=== PATIENT | female | born 1970 | race Caucasian/White ===

== ENCOUNTER 2020-11-13 17:29 | Emergency (ER) | payer OTHER, SELFPAY ==
--- NOTE | ~2020-11-13 | XR_ITS ---
EXAMINATION: XR ankle RT min 3V INDICATION: Right ankle pain TECHNIQUE: Four views of the right ankle are obtained COMPARISON: None available FINDINGS: Bone alignment is normal. There is lateral soft tissue swelling of ankle. No fracture is id entified. Dorsal and plantar calcaneal enthesophytes are noted. IMPRESSION: 1. Ankle soft tissue swelling without acute osseous abnormality. Reviewed, dictated and finalized at location A.
--- NOTE | ~2020-11-13 | XR_ITS ---
EXAMINATION: XR foot RT min 3V DATE: 11/13/2020 18:07 INDICATION: Right foot pain TECHNIQUE: Dorsoplantar, lateral, and 2 oblique views of the right foot were obtained. COMPARISON: None. FINDINGS: There is no fracture, dislocation, or subluxation. 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 The soft tissues are unremarkable. IMPRESSION: 1. No acute osseous abnormality. Reviewed, dictated and finalized at location A.
[2020-11-13 17:40] VITALS: BP 135/77; PULSE 99; RESP 20; TEMP 36.6; O2SAT 98
--- NOTE | 2020-11-13 18:34 | ED.LOWEXIN ---
HPI - Extremity Injury (Lower) General Chief Complaint: Extremity Injury, Lower Stated Complaint: fall,rt ankle/foot inj Source: patient Mode of arrival: ambulatory Limitations: no limitations History of Present Illness HPI Narrative: Patient is a 50-year-old female who presents complaining of right ankle pain. She reports rolling ankle while going down steps today. She reports pain with ambulation. She denies taking [id number] medications prior to arrival. Patient denies all other complaints. Related Data Home Medications Medication Instructions Recorded Confirmed buspirone 15 mg PO DAILY 11/13/20 11/13/20 duloxetine 30 mg PO DAILY 11/13/20 11/13/20 warfarin 2 mg PO DAILY 11/13/20 11/13/20 warfarin 7.5 mg PO DAILY 11/13/20 11/13/20 Allergies Allergy/AdvReac Type Severity Reaction Status Date / Time No Known Allergies Allergy Verified 11/13/20 18:05 Review of Systems Review of Systems: Narrative: CONSTITUTIONAL: Denies fever, chills, or sweats. EYES: Denies visual changes, redness, or discharge. ENT: Denies rhinorrhea, congestion, sore throat, or otalgia. CARDIOVASCULAR: Denies chest pain, palpitations, or edema. RESPIRATORY: Denies cough or dyspnea. GASTROINTESTINAL: Denies abdominal pain, nausea, vomiting, or diarrhea. GENITOURINARY: Denies dysuria or hematuria. SKIN: Denies rash or itching. MUSCULOSKELETAL: Right ankle pain NEUROLOGIC: Denies headache, numbness, dizziness, or weakness. PSYCHIATRIC: Denies anxiety or depression. [facility] Past Medical History Medical History Chronic back pain Depression DVT (deep venous thrombosis) Pulmonary embolism Surgical History Surgical History H/O arthroscopy of left knee History of carpal tunnel surgery History of hysterectomy Hx of tonsillectomy S/P cervical spinal fusion Family History Family History Other Heart disease Social History Social History (Updated 11/13/20 @ 18:37 by HAFSA Trotter) Smoking status: Current every day smoker Tobacco type: cigarettes Alcohol intake: never Substance use: never Occupation/Education: occupation Comments At the time of signature, I have reviewed and agree with nursing past medical, surgical, social, and family history unless otherwise noted. Please see nursing chart for further information. There is no relevant family history pertinent to the presenting complaint. Exam Narrative: Exam Narrative: GENERAL: Well-appearing, well-nourished, and in no acute distress. HEAD: Normocephalic, atraumatic. EYES: EOMI. No redness or drainage. Conjunctiva are normal. ENT: Mucous membranes pink and moist. CHEST: No respiratory distress. Clear to auscultation. HEART: Regular rate and rhythm. No murmur appreciated. Normal peripheral pulses. EXTREMITIES: Positive edema to right lateral ankle, tenderness with palpation SKIN: Warm, dry, no rash. NEURO: No focal deficits. Alert and oriented x3. Gait steady. PSYCH: Normal affect. No signs of depression or anxiety. Course Vital Signs Vital signs: Vital Signs Temperature 36.6 C 11/13/20 17:40 Pulse Rate 99 11/13/20 17:40 Respiratory Rate 20 11/13/20 17:40 Blood Pressure 135/77 11/13/20 17:40 Pulse Oximetry 98 11/13/20 17:40 Temperature 36.6 C 11/13/20 17:40 Pulse Rate 99 11/13/20 17:40 Respiratory Rate 20 11/13/20 17:40 Blood Pressure 135/77 11/13/20 17:40 Pulse Oximetry 98 11/13/20 17:40 Reviewed-patient is informed that they may have pre-hypertension or hypertension based on a blood pressure reading. I recommend the patient call the primary care provider listed on their discharge instructions or a physician of their choice this week to arrange follow-up for further evaluation of possible pre-hypertension or hypertension. MDM - Extremity Injury
== END 2020-11-13 18:40 | disposition home or self-care (01) ==
PROVIDERS: Emergency Provider Nurse Practitioner; PCP Nurse Practitioner Adult Health
DX: S93.401A Sprain of unspecified ligament of right ankle, initial encounter (principal); S96.911A Strain of unspecified muscle and tendon at ankle and foot level, right foot, initial encounter; X50.9XXA Other and unspecified overexertion or strenuous movements or postures, initial encounter; F32.9 Major depressive disorder, single episode, unspecified; Z86.711 Personal history of pulmonary embolism; Z86.718 Personal history of other venous thrombosis and embolism; F17.210 Nicotine dependence, cigarettes, uncomplicated; Z79.01 Long term (current) use of anticoagulants
CPT/HCPCS: 73610; 73630; 99203; G0463

== ENCOUNTER 2021-05-27 14:35 | Emergency (ER) | payer OTHER, SELFPAY ==
--- NOTE | ~2021-05-27 | XR_ITS ---
EXAMINATION: XR chest 2V DATE: 05/27/2021 15:25 INDICATION: Cough, fever, shortness breath, and wheezing. TECHNIQUE: Frontal and lateral views of the chest were obtained. COMPARISON: None. FINDINGS: The chest demonstrates clear lungs without pneumonia, pleural effusion, or pneumothorax. Th e heart size is normal. There are changes of anterior fusion procedure in cervical spine. IMPRESSION: 1. No acute cardiopulmonary disease. Reviewed, dictated and finalized at location A. [facility]
--- NOTE | 2021-05-27 14:38 | ED.URI ---
HPI - URI/Sore Throat General Chief Complaint: Upper Respiratory Infection Stated Complaint: Congestion/Sore Throat Time Seen by Provider: 05/27/21 14:38 Source: patient and RN notes reviewed History of Present Illness HPI Narrative: Patient is a 51-year-old female who presents the urgent care with complaints of sore throat, cough, body aches, fever and chest congestion. Patient states that she had a negative Covid test last . States that symptoms started approximately 1 week ago. Patient has been Covid vaccinated. States that she has been taking Tylenol, Zyrtec, NyQuil and Mucinex. No other acute complaints. No acute distress noted. Patient aware of the plan of care. Some parts of this dictation were generated by voice recognition software and may contain typographical and/or grammatical inaccuracies. Related Data Home Medications Medication Instructions Recorded Confirmed buspirone 15 mg PO BID 11/13/20 05/27/21 duloxetine 30 mg PO BID 11/13/20 05/27/21 warfarin 2 mg PO DAILY 11/13/20 05/27/21 warfarin 7.5 mg PO DAILY 11/13/20 05/27/21 Allergies Allergy/AdvReac Type Severity Reaction Status Date / Time No Known Allergies Allergy Verified 05/27/21 15:08 Review of Systems Review of Systems: CONSTITUTIONAL: Reports of fever, chills EYES: Denies visual changes, redness, or discharge. ENT: Reports of postnasal drainage, congestion and sore throat CARDIOVASCULAR: Denies chest pain, palpitations, or edema. RESPIRATORY: Reports of cough with intermittent dyspnea GASTROINTESTINAL: Denies abdominal pain, nausea, vomiting, or diarrhea. GENITOURINARY: Denies dysuria or hematuria. SKIN: Denies rash or itching. MUSCULOSKELETAL: Denies back pain, joint pain. Reports of body aches NEUROLOGIC: Denies headache, numbness, or weakness. All other systems reviewed are negative, except as documented in HPI. [facility] Past Medical History Medical History Chronic back pain Depression DVT (deep venous thrombosis) Pulmonary embolism Surgical History Surgical History H/O arthroscopy of left knee History of carpal tunnel surgery History of hysterectomy Hx of tonsillectomy S/P cervical spinal fusion Family History Family History Other Heart disease Social History Social History (Updated 11/13/20 @ 18:37 by HAFSA Trotter) Smoking status: Current every day smoker Tobacco type: cigarettes Alcohol intake: never Substance use: never Comments At the time of my signature, I reviewed and agree with the nursing past medical, surgical, social, and family history. There is no relevant family history pertinent to the patient complaint. Exam Narrative: GENERAL: This is a well-nourished, well-developed patient, in no apparent distress. HEAD: normocephalic, atraumatic. EYES: PERRL. Sclera clear/white. Vision is grossly intact. EARS: External ears normal, auditory canals clear and without drainage, TMs normal without perforation. Hearing grossly intact. NOSE: External nose normal with no obvious nasal discharge, nares without redness, clear rhinorrhea. THROAT: Mucous membranes moist, posterior pharynx clear. Moderate postnasal drainage NECK: Neck supple CARDIOVASCULAR: Regular rate and rhythm without murmurs, gallops, or rubs. RESPIRATORY: Rare expiratory wheezes to the bilateral upper lobes and left lower SKIN: warm, intact with no suspicious lesions or rash, good texture and turgor. NEURO: awake, alert, and oriented to person, place and time. There were no obvious focal neurologic abnormalities. EXTREMITIES: No clubbing, cyanosis, or edema. Course Vital Signs Vital signs: Vital Signs Temperature 97.3 F L 05/27/21 14:44 Pulse Rate 112 H 05/27/21 14:44 Respiratory Rate 20 05/27/21 14:44 Blood Pressure 148/92 H 05/27/21 14:44 Pulse O
[2021-05-27 14:44] VITALS: BP 148/92; PULSE 112; RESP 20; TEMP 36.3; O2SAT 98
== END 2021-05-27 15:55 | disposition home or self-care (01) ==
PROVIDERS: Emergency Provider Nurse Practitioner Family; PCP Nurse Practitioner Family
DX: J40 Bronchitis, not specified as acute or chronic (principal); F17.200 Nicotine dependence, unspecified, uncomplicated
CPT/HCPCS: 71046; 87804; 99213; G0463

== ENCOUNTER 2023-09-11 11:56 | Emergency (ER) | payer OTHER, SELFPAY ==
[2023-09-11 12:06] VITALS: BP 127/86; PULSE 98; RESP 20; TEMP 36.6; O2SAT 98
--- NOTE | 2023-09-11 12:10 | ED.URI ---
HPI - URI/Sore Throat General Chief Complaint: Upper Respiratory Infection Stated Complaint: Shortness of Breath Time Seen by Provider: 09/11/23 12:22 Source: patient and RN notes reviewed Mode of arrival: ambulatory Limitations: no limitations History of Present Illness HPI Narrative: 53-year-old female presents concern for 3 month history of productive cough, occasional shortness of breath, sinus congestion, sinus drainage, postnasal drainage. She reports [id number] medications are not helping. She denies fever, body aches, chills, sweats, chest pain. She has history of PE 10 years ago for which she is currently on blood thinners. Reports the symptoms are not similar to those symptoms. She understands that PE cannot be diagnosed at the urgent care. MD elicited complaint: cough and nasal congestion Related Data Home Medications Medication Instructions Recorded Confirmed duloxetine 30 mg capsule,delayed 30 mg PO BID 11/13/20 09/11/23 release atorvastatin 40 mg tablet 40 mg PO DAILY 09/11/23 09/11/23 buspirone 30 mg tablet 30 mg PO BID 09/11/23 09/11/23 propranolol 20 mg tablet 20 mg PO TID 09/11/23 09/11/23 rivaroxaban 20 mg tablet (Xarelto) 20 mg PO DAILY 09/11/23 09/11/23 trazodone 100 mg tablet 100 mg PO QHS 09/11/23 09/11/23 Allergies Allergy/AdvReac Type Severity Reaction Status Date / Time No Known Allergies Allergy Verified 09/11/23 12:17 Review of Systems Review of Systems: CONSTITUTIONAL: Denies malaise, chills, sweats, or fever. EYES: Denies visual changes, redness, or discharge. ENT: Reports rhinorrhea, congestion, sinus pain CARDIOVASCULAR: Denies chest pain, palpitations, or edema. RESPIRATORY: Reports chronic productive cough, occasion dyspnea. GASTROINTESTINAL: Denies abdominal pain, nausea, vomiting, diarrhea SKIN: Denies rash or itching. MUSCULOSKELETAL: Denies myalgia. NEUROLOGIC: Denies headache. All systems reviewed & are unremarkable except as noted in HPI and below PMFSH Past Medical History Medical History Chronic back pain Depression DVT (deep venous thrombosis) Pulmonary embolism Surgical History Surgical History H/O arthroscopy of left knee History of carpal tunnel surgery History of hysterectomy Hx of tonsillectomy S/P cervical spinal fusion Family History Family History Other Heart disease Social History Social History (Updated 11/13/20 @ 18:37 by Magali Hazel, HAFSA) Smoking status: Current every day smoker Tobacco type: cigarettes Alcohol intake: never Substance use: never Occupation/Education: occupation Comments At time of signature, agree with nursing past medical, surgical, social and family history. There is no relevant family history pertinent to the presenting complaint Exam Narrative: GENERAL: Well-appearing, well-nourished, and in no acute distress. HEAD: Normocephalic EYES: PERRLA, conjunctivae clear ENT: Nares clear, turbinates edematous and erythematous. Mucous membranes moist. TM pearly matthews with dull light reflex bilaterally; no tragal tenderness. Oropharynx not erythematous without lesions. Tonsils not enlarged and without exudate, no drooling, no hoarseness, no trismus, uvula midline. NECK: Supple. No lymphadenopathy CHEST: Clear to auscultation, breath sounds equal. No wheezing, rhonchi, rales, or stridor. No respiratory distress, speaks in full sentences. HEART: Regular rate and rhythm. No murmur heard. SKIN: Warm, dry, no rash. NEURO: Alert and oriented x3. PSYCH: Normal mood and affect Course Course Emergency Course: Patient is aware of diagnosis, understands and agrees to treatment plan. Anticipatory guidance given. Patient agrees to follow-up as directed and is aware of reasons to seek care at the emergency department. Portions of this r
== END 2023-09-11 12:34 | disposition home or self-care (01) ==
PROVIDERS: Emergency Provider Nurse Practitioner; PCP Internal Medicine
DX: J32.9 Chronic sinusitis, unspecified (principal); J40 Bronchitis, not specified as acute or chronic; F17.210 Nicotine dependence, cigarettes, uncomplicated; F32.A Depression, unspecified; Z86.718 Personal history of other venous thrombosis and embolism; Z86.711 Personal history of pulmonary embolism
CPT/HCPCS: 99213; G0463